=== PATIENT | female | born 1960 | race Caucasian/White ===

== ENCOUNTER 2016-10-28 05:48 | Inpatient (IN) | payer MEDICARE, MEDICAID ==
[~2016-10-28] VITALS: Ht 165.1 cm; Wt 84.4 kg
[2016-10-28] MEDS ORDERED: BUPIVACAINE/PF 0.5% ONE (07:03)
[2016-10-28] MEDS ORDERED: BACITRACIN 50,000 UNIT ONE (07:03)
[2016-10-28] MEDS ORDERED: THROMBIN 5,000 UNIT VIAL TP ONE (07:03)
[2016-10-28] MEDS ORDERED: EPINEPHRINE 1 MG/ML, 1ML ONE (07:03)
[2016-10-28] MEDS ORDERED: LACTATED RINGERS 1,000 ML IV SCH (07:14)
[2016-10-28] MEDS ORDERED: LIDOCAINE 1%, 2ML ONE (07:15)
[2016-10-28] MEDS ORDERED: ASPI-496 PO (07:17)
[2016-10-28] MEDS ORDERED: HYDR25CA PO (07:22)
[2016-10-28] MEDS ORDERED: LISI-170 PO (07:22)
[2016-10-28] MEDS ORDERED: PRAZ2CAP2 PO (07:22)
[2016-10-28] MEDS ORDERED: METF500T4 PO (07:22)
[2016-10-28] MEDS ORDERED: MIDAZOLAM 1 MG/ML, 2ML ONE (07:22)
[2016-10-28] MEDS ORDERED: LAMO200T3 PO (07:22)
[2016-10-28] MEDS ORDERED: HYDR-3307 PO (07:22)
[2016-10-28] MEDS ORDERED: METO25TA35 PO (07:22)
[2016-10-28] MEDS ORDERED: TIZA4CAP PO (07:22)
[2016-10-28] MEDS ORDERED: LOVA20TA2 PO (07:22)
[2016-10-28] MEDS ORDERED: FENTANYL PF 100 MCG/2ML ONE (07:22)
[2016-10-28] MEDS ORDERED: SERT100T PO (07:22)
[2016-10-28] MEDS ORDERED: REMIFENTANIL 2 MG ONE ×2 (07:22→10:23)
[2016-10-28] MEDS ORDERED: LIDOCAINE 1%, 2ML SQ PRN (07:30)
[2016-10-28] MEDS ORDERED: PLEASE ENTER HEIGHT AND WEIGHT MC SCH (07:30)
[2016-10-28 07:36] VITALS: BP 84/54
[2016-10-28] MEDS ORDERED: BREO INH (07:50)
[2016-10-28] MEDS ORDERED: KETAMINE 10 MG/ML, 20ML ONE (08:06)
[2016-10-28] MEDS ORDERED: DEXAMETHASONE 4 MG/ML, 1ML ONE (08:06)
[2016-10-28] MEDS ORDERED: PROPOFOL 10 MG/ML, 20ML ONE (08:06)
[2016-10-28] MEDS ORDERED: ONDANSETRON 2MG/ML, 2ML ONE (08:06)
[2016-10-28] MEDS ORDERED: CEFAZOLIN 1,000 MG ONE (08:06)
[2016-10-28] MEDS ORDERED: SUCCINYLCHOLINE 20 MG/ML, 10ML ONE (08:06)
[2016-10-28] MEDS ORDERED: PHENYLEPHRINE 10 MG/ML ONE (08:06)
[2016-10-28] MEDS ORDERED: MEPERIDINE/PF 25MG/0.5ML IVPush PRN (10:00)
[2016-10-28] MEDS ORDERED: OXYcodone 5 MG/5 ML ORAL.SOL UDC PO PRN (10:00)
[2016-10-28] MEDS ORDERED: ONDANSETRON 2MG/ML, 2ML IVPush PRN (10:00)
[2016-10-28] MEDS ORDERED: ACETAMINOPHEN 325 MG TABLET PO PRN (10:00)
[2016-10-28] MEDS ORDERED: DIAZEPAM 5 MG/ML, 2ML IVPush PRN (10:00)
[2016-10-28] MEDS ORDERED: PROMETHAZINE 25 MG/ML, 1ML IV PRN (10:00)
[2016-10-28] MEDS ORDERED: FENTANYL PF 100 MCG/2ML IV PRN (10:00)
[2016-10-28] MEDS ORDERED: HYDROmorphone 1 MG/ML, 1ML ONE ×2 (10:23→11:25)
[2016-10-28] MEDS ORDERED: ACETAMINOPHEN 650 MG/20.3 ML UDC ONE (11:25)
[2016-10-28] MEDS ORDERED: MEPERIDINE/PF 25MG/0.5ML ONE (11:25)
[2016-10-28] MEDS ORDERED: OXYcodone 5 MG/5 ML ORAL.SOL UDC ONE (11:26)
[2016-10-28] MEDS: HYDROmorphone 1 MG/ML, 1ML IV PRN ×4 (11:35→12:11)
[2016-10-28] MEDS ORDERED: METHOCARBAMOL 750 MG TABLET ONE (11:59)
[2016-10-28] MEDS ORDERED: METHOCARBAMOL 750 MG TABLET PO ONE (12:00)
[2016-10-28] MEDS ORDERED: MAGNESIUM HYDROXIDE 8%, 30ML UDC PO PRN (13:30)
[2016-10-28] MEDS ORDERED: DIPHENHYDRAMINE 50 MG/ML, 1ML IVPush PRN (13:30)
[2016-10-28] MEDS ORDERED: ONDANSETRON 2MG/ML, 2ML IV PRN (13:30)
[2016-10-28] MEDS ORDERED: DIPHENHYDRAMINE 50 MG CAPSULE PO PRN (13:30)
[2016-10-28] MEDS ORDERED: BISACODYL 10 MG SUPP PR PRN (13:30)
[2016-10-28] MEDS ORDERED: METHOCARBAMOL 750 MG TABLET PO PRN (13:30)
[2016-10-28] MEDS ORDERED: HYDROmorphone 2 MG/ML, 1ML IM PRN (13:30)
[2016-10-28] MEDS ORDERED: DIPHENHYDRAMINE 50 MG/ML, 1ML IM PRN (13:30)
[2016-10-28] MEDS ORDERED: PROMETHAZINE 25 MG/ML, 1ML IM PRN (13:30)
[2016-10-28] MEDS: NS + 20MEQ KCL 1,000 ML IV SCH (14:30)
[2016-10-28 16:41] VITALS: BP 97/65
[2016-10-28] MEDS: METOPROLOL TARTRATE 25 MG TABLET PO SCH (16:41)
[2016-10-28] MEDS: metFORMIN 500 MG TABLET PO SCH (16:42)
[2016-10-28] MEDS: CEFAZOLIN PMX 1GM/50ML 50 ML IVPB SCH (16:42)
[2016-10-28 20:15] VITALS: BP 105/70
[2016-10-28] MEDS: LISINOPRIL 20 MG TABLET PO SCH (21:00)
[2016-10-28] MEDS ORDERED: ZOLPIDEM 5MG TABLET PO PRN (21:00)
[2016-10-29 00:03] VITALS: BP 108/72
[2016-10-29] MEDS: CEFAZOLIN PMX 1GM/50ML 50 ML IVPB SCH (00:07)
[2016-10-29] MEDS: NS + 20MEQ KCL 1,000 ML IV SCH ×2 (03:08→14:33)
[2016-10-29 04:04] VITALS: BP 112/73
[2016-10-29] MEDS: METOPROLOL TARTRATE 25 MG TABLET PO SCH ×2 (06:00→18:00)
[2016-10-29] MEDS: metFORMIN 500 MG TABLET PO SCH ×2 (07:48→16:51)
[2016-10-29] MEDS: HYDROcodone/APAP 10/325 MG TABLET PO PRN ×3 (07:48→16:52)
[2016-10-29 07:59] VITALS: BP 104/69
[2016-10-29] MEDS ORDERED: CYCL-259 PO (08:31)
[2016-10-29] MEDS ORDERED: LOVASTATIN 40 MG TABLET PO SCH (09:00)
[2016-10-29] MEDS ORDERED: PRAZOSIN 2 MG CAPSULE PO SCH (09:00)
[2016-10-29] MEDS ORDERED: LAMOTRIGINE 200 MG TABLET PO SCH (09:00)
[2016-10-29] MEDS ORDERED: ALBUTEROL SULFATE 2.5 MG/3 ML ONE (10:05)
[2016-10-29] MEDS: LISINOPRIL 20 MG TABLET PO SCH ×2 (10:07→21:00)
[2016-10-29] MEDS: SERTRALINE 100MG TABLET PO SCH (10:23)
[2016-10-29] MEDS: CYCLOBENZAPRINE 10 MG TABLET PO SCH ×3 (10:23→21:45)
[2016-10-29] MEDS: SENNA/DOCUSATE TABLET PO SCH (10:23)
[2016-10-29] MEDS ORDERED: ALBUTEROL SULFATE 2.5 MG/3 ML NPPB PRN (10:30)
[2016-10-29 12:39] VITALS: BP 110/75
[2016-10-29] MEDS: FLUTICASONE/VILANTEROL 200-25MCG/INH INH SCH (14:33)
[2016-10-29 17:59] VITALS: BP 116/75
[2016-10-29] MEDS: HYDROmorphone 2MG TABLET PO PRN ×2 (18:00→21:45)
[2016-10-29 20:12] VITALS: BP 113/77
[2016-10-29] MEDS: TIZANIDINE 4MG TABLET PO SCH (21:45)
[2016-10-30] MEDS: NS + 20MEQ KCL 1,000 ML IV SCH (03:00)
[2016-10-30] MEDS: HYDROmorphone 2MG TABLET PO PRN (03:10)
[2016-10-30 04:15] VITALS: BP 141/89
[2016-10-30] MEDS: METOPROLOL TARTRATE 25 MG TABLET PO SCH (06:30)
[2016-10-30 07:55] VITALS: BP 119/76
[2016-10-30] MEDS: FLUTICASONE/VILANTEROL 200-25MCG/INH INH SCH (08:13)
[2016-10-30] MEDS: TIZANIDINE 4MG TABLET PO SCH (08:13)
[2016-10-30] MEDS: HYDROcodone/APAP 10/325 MG TABLET PO PRN ×2 (08:15→12:48)
[2016-10-30] MEDS: SENNA/DOCUSATE TABLET PO SCH (08:16)
[2016-10-30] MEDS: SERTRALINE 100MG TABLET PO SCH (08:16)
[2016-10-30] MEDS: metFORMIN 500 MG TABLET PO SCH (08:16)
[2016-10-30] MEDS: LISINOPRIL 20 MG TABLET PO SCH (08:16)
[2016-10-30] MEDS: CYCLOBENZAPRINE 10 MG TABLET PO SCH ×2 (08:16→15:49)
[2016-10-30 14:17] VITALS: BP 95/60
[2016-10-30 15:53] VITALS: BP 108/71
== END 2016-10-30 13:45 | disposition home or self-care (01) | DRG 473 ==
LOC: ORIP 05:48 → 4NOR 12:46
PROVIDERS: ADMIT Neurological Surgery; ATTEND Neurological Surgery
PROC: 0RB30ZZ Excision of Cervical Vertebral Disc, Open Approach (ICD-10-PCS; 2016-10-28)
PROC: 0RG20A0 Fusion of 2 or more Cervical Vertebral Joints with Interbody Fusion Device, Anterior Approach, Anterior Column, Open Approach (ICD-10-PCS; principal; 2016-10-28 08:00)
DX: M48.02 Spinal stenosis, cervical region (principal); R13.10 Dysphagia, unspecified; M47.812 Spondylosis without myelopathy or radiculopathy, cervical region; M40.292 Other kyphosis, cervical region
CPT/HCPCS: 72040; 95938; 95941; C1713; C1776; J0171; J0690; J1100; J1170; J2175; J2250; J2270; J2405; J2550; J2704; J3010; J3480; J3490; J0330; J2370; J7120; Q0177